=== PATIENT | male | born 1980 | race Caucasian/White ===

== ENCOUNTER 2017-03-21 22:19 | Emergency (ER) | payer BC, OTHER ==
[~2017-03-21] VITALS: Ht 180.3 cm; Wt 88.5 kg
[2017-03-21 22:43] VITALS: BP 154/99
[2017-03-21] MEDS ORDERED: LIDOCAINE 1% HCL (LOCAL ANESTH.) INJ 20ML MDV IJ ONE (23:30)
[2017-03-21] MEDS ORDERED: BACITRACIN TOP OINT 1 UD PKG TOP ONE (23:30)
== END 2017-03-22 | disposition home or self-care (01) ==
LOC: ER 22:23
DX: S01.312A Laceration without foreign body of left ear, initial encounter (principal); W21.03XA Struck by baseball, initial encounter; Y93.64 Activity, baseball; Y99.8 Other external cause status; Y92.89 Other specified places as the place of occurrence of the external cause
CPT/HCPCS: 12011; 99283; J2001